=== PATIENT | female | born 1965 | race African-American/Black ===

== ENCOUNTER 2017-07-25 13:38 | Emergency (ER) | payer OTHER, BC ==
[~2017-07-25 13:38] MED LIST: NORV5TAB PO
[2017-07-25 13:39] VITALS: BP 164/61; PULSE 92; RESP 12; TEMP 98.2; O2SAT 99
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
[2017-07-25] MEDS ORDERED: ROBA500T PO (15:54)
[2017-07-25] MEDS ORDERED: IBUP1TAB7 PO (15:54)
[2017-07-25] MEDS ORDERED: IBUPROFEN 800 MG TAB PO ONE (16:00)
[2017-07-25] MEDS ORDERED: METHOCARBAMOL 500 MG TAB PO ONE (16:00)
[2017-07-25 16:08] VITALS: BP 154/82
[2017-07-25 17:06] VITALS: RESP 18
== END 2017-07-25 17:05 | disposition home or self-care (01) ==
LOC: NEPD 13:38
DX: S39.012A Strain of muscle, fascia and tendon of lower back, initial encounter (principal); I10 Essential (primary) hypertension; V43.52XA Car driver injured in collision with other type car in traffic accident, initial encounter; Z79.899 Other long term (current) drug therapy
CPT/HCPCS: 99283